=== PATIENT | female | born 1940 | race Caucasian/White ===

== ENCOUNTER 2021-03-28 23:39 | Emergency (ER) | payer MEDICARE ==
--- NOTE | 2021-03-29 01:17 | XRAY Report ---
PROCEDURE: Ankle 3 View RT INDICATIONS: Trauma TECHNIQUE: 3 views of the ankle were acquired. COMPARISON: None. FINDINGS: Bones: No fractures or dislocations. Ankle mortise is normally aligned. No suspicious bony lesions . Small posterior and plantar calcaneal spurs. Soft tissues: Chronic ossifications are seen in the anterior medial lower leg. IMPRESSION: No acute osseous abnormality. If there is clinical concern or persistent symptoms, addit ional imaging such as repeat radiographs or advanced imaging (e.g. CT, MRI) may be helpful for furthe r evaluation. Reviewed by: Ivan Denis MD on 03/29/2021 1:16 AM PDT Approved by: Ivan Denis MD on 03/29/2021 1:16 AM PDT Station ID: [id number]
--- NOTE | 2021-03-29 01:21 | XRAY Report ---
PROCEDURE: Foot 3 View RT INDICATIONS: Trauma TECHNIQUE: 3 views of the foot were acquired. COMPARISON: None. FINDINGS: Bones: There is possible mild widening of the first intermetatarsal distance that is nonspecific but could represent a subtle Lisfranc ligament injury. No suspicious bony lesions. Small plantar and pos terior calcaneal enthesophytes. Degenerative changes are seen at the first metatarsophalangeal joint. Soft tissues: Soft tissue edema is seen at the dorsum of the foot. IMPRESSION: Possible mild widening of the first intermetatarsal distance, which could indicate a subtle Lisfranc injury. Bilateral weightbearing radiographs of the feet could be obtained for further evaluation, [facility] advanced imaging with CT or MRI for confirmation. Reviewed by: Ivan Denis MD on 03/29/2021 1:20 AM PDT Approved by: Ivan Denis MD on 03/29/2021 1:20 AM PDT Station ID: [id number]
[2021-03-29] MEDS ORDERED: oxyCODONE 5 MG TABLET PO STA (01:49)
--- NOTE | 2021-03-29 02:47 | ED Physician Documentation ---
History of Present Illness - Stated complaint Stated Complaint: GLF, R FT SWOLLEN - Chief complaint Chief Complaint: Trauma Ext - History obtained from History obtained from: Patient - Additonal information Additional information: 80yF presents with R ankle pain after twisting it getting out of a car tonight. suden onset moderate pain unrelieved with tylenol. worse with rom. no other injury. no HT no loc. Review of Systems Skin: reports: Other (ecchymosis) Musculoskeletal: reports: Extremity pain, Joint pain, Extremity swelling Neurologic: denies: Focal weakness PD PAST MEDICAL HISTORY - Present Medications Home Medications: Ambulatory Orders Medication Instructions Recorded Confirmed Aspirin [[place] Aspirin] 81 mg PO DAILY 03/29/21 03/29/21 Atorvastatin Calcium 40 mg PO DAILY PM 03/29/21 03/29/21 Calcium Carbonate [Calcium] 0 mg PO DAILY 03/29/21 03/29/21 Citalopram Hydrobromide [Celexa] 20 mg PO DAILY 03/29/21 03/29/21 Cyanocobalamin (Vitamin B-12) 1,000 mcg PO DAILY 03/29/21 03/29/21 [Vitamin B-12] Omeprazole Magnesium 20 mg PO AC PRN 03/29/21 03/29/21 Oxybutynin [Ditropan] 5 mg PO BID 03/29/21 03/29/21 Oxycodone HCl/Acetaminophen 1 each PO Q4H PRN #10 tablet 03/29/21 [Percocet 10-325 mg Tablet] Potassium Citrate [Potassium 10 meq PO TID 03/29/21 03/29/21 Citrate ER] Pramipexole Di-HCl [Mirapex] 1 mg PO DAILY PM 03/29/21 03/29/21 Semaglutide [Ozempic] 1 mg SQ OAW 03/29/21 03/29/21 - Allergies Allergies/Adverse Reactions: Allergies Allergy/AdvReac Type Severity Reaction Status Date / Time Penicillins Allergy Itching Verified 03/29/21 00:02 PD ED PE NORMAL - Vitals Vital signs reviewed: Yes - General General: Alert and oriented X 3, No acute distress, Well developed/nourished - HEENT HEENT: Atraumatic, PERRL, EOMI - Derm Derm: Normal color, Warm and dry - Extremities Extremities: Other (R ankle tender with rom. ecchymosis and swelling to ankle. 2+ dp pulses bilaterally. normal sensation and cap refill. midfoot ttp) - Neuro Neuro: No motor deficit, No sensory deficit - Psych Psych: Normal mood, Normal affect Results - Vitals Vitals: Vital Signs - 24 hr 03/28/21 23:55 Temperature 36.3 C L Heart Rate 88 Respiratory 16 Rate Blood Pressure 146/75 H O2 Saturation 96 Oxygen O2 Source Room air PD MEDICAL DECISION MAKING - ED course ED course: 80yF p/w ankle injury, some foot pain as well, with possible lisfranc fracture on xray. ct showed comminuted 2nd MT fx, proximal midcuneiform fracture, midcuneiform fracture, d/w Dr. Gomez show operations supervisor for ortho who recommends outpatient f/u, nonweightbearing. He does not recommend MRI emergently for eval of lisfranc injury, stating this is nonsurgical. however I d/w the patient that she should see her orthopedist outpatient and have them evaluate further. return precautions given. plan to f/u with orthopedics. Departure - Departure Clinical Impression: Ankle injury Condition: Good Instructions: ED RICE Follow-Up: Rodrigo Gomez MD [Provider Admit Priv/Credential] - Prescriptions: Oxycodone HCl/Acetaminophen [Percocet 10-325 mg Tablet] 1 each PO Q4H PRN #10 tablet PRN Reason: Pain Comments: You were seen in the emergency department for ankle and foot injury. You have a broken 2nd metatarsal bone in your foot as well as broken cuneiform (foot break or fracture). please follow up with an orthopedics doctor in 1 week. use your crutches as tolerated. Do not bear any weight on the foot. return to the emergency department if you have any new or worsening symptoms or other concerns.
[2021-03-29 04:11] VITALS: BP 136/89
--- NOTE | 2021-03-29 08:13 | CT Report ---
PROCEDURE: LOWER EXTREMITY WO - RT INDICATIONS: R foot possible lisfranc fracture TECHNIQUE: Noncontrast 1 mm axial sections acquired of the right ankle and foot, with coronal and sagittal refor mats. COMPARISON: Right ankle and foot radiograph from the same day. FINDINGS: Image quality: Excellent. Bones: There is a minimally displaced and slightly comminuted fracture involving plantar and medial c orner of first metatarsal base. Subtle nondisplaced displaced fracture is also noted involving planta r aspect of distal medial cuneiform adjacent to the first TMT joint. Acute oblique fracture through b toño of medial cuneiform is also seen with minimal dorsal displacement at fracture site. Acute comminu christian fractures also seen involving plantar aspect of second metatarsal base with inferiorly displaced fractured fragments. Avulsion injury involving adjacent dorsal aspect of middle cuneiform is also see n with minimal dorsal displacement of fractured fragment. No dislocation is seen. No other fracture i s noted. 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 Lisfranc joint appears intact. W ell-defined plantar and dorsal calcaneal enthesophytes are seen. Soft tissues: Significant soft tissue swelling over dorsal aspect of first through fourth TMT joint is seen. No gross full-thickness tendon rupture. Likely old injury involving dorsal aspect of second TMT joint with well corticated small fragments. No other soft tissue calcifications are seen. [place] s tendon is grossly intact. Plantar fascia is intact. IMPRESSION: 1. Minimally displaced fractures involving first and second metatarsal bases as above. 2. Minimally displaced fracture is also noted involving medial and middle cuneiforms as above. 3. Lisfranc joint appears well aligned without dislocation or subluxation. 4. Dorsal midfoot soft tissue swelling and edema. No other abnormal soft tissue calcifications. No fu ll-thickness tendon rupture. 5. Osteoarthritic changes throughout right foot. No significant discrepancies from preliminary reading. Reviewed by: Virgil Dejesus MD on 03/29/2021 8:12 AM PDT Approved by: Virgil Dejesus MD on 03/29/2021 8:12 AM PDT Station ID: [id number]
== END 2021-03-29 04:07 | disposition home or self-care (01) ==
LOC: ED 23:39
DX: S92.324A Nondisplaced fracture of second metatarsal bone, right foot, initial encounter for closed fracture (principal); S92.314A Nondisplaced fracture of first metatarsal bone, right foot, initial encounter for closed fracture; S92.244A Nondisplaced fracture of medial cuneiform of right foot, initial encounter for closed fracture; V48.4XXA Person boarding or alighting a car injured in noncollision transport accident, initial encounter; X50.1XXA Overexertion from prolonged static or awkward postures, initial encounter; Y93.89 Activity, other specified
CPT/HCPCS: 73610; 73630; 73700; 99283; A9270